=== PATIENT | male | born 1985 | race Caucasian/White ===

== ENCOUNTER 2017-09-24 03:11 | Emergency (ER) | payer SELFPAY ==
[~2017-09-24] VITALS: Ht 180.3 cm; Wt 86.0 kg
[2017-09-24 03:31] VITALS: BP 125/85
== END 2017-09-24 03:32 | disposition home or self-care (01) ==
LOC: ER 03:13
DX: J20.9 Acute bronchitis, unspecified (principal); F17.200 Nicotine dependence, unspecified, uncomplicated; F12.10 Cannabis abuse, uncomplicated; Z59.0 Homelessness
CPT/HCPCS: 99281